=== PATIENT | female | born 1960 | race Two or more races ===

== ENCOUNTER 2019-08-17 06:05 | Day surgery (SDC) | payer OTHER ==
[~2019-08-17 06:05] MED LIST: COZAAR25 MG PO; LEVO-T25 MCG PO
[2019-08-17] MEDS ORDERED: IBU400 MG PO (08:55)
== END 2019-08-17 12:30 | disposition home or self-care (01) ==
LOC: CIR.AMB 06:05
DX: N84.1 Polyp of cervix uteri (principal)

== ENCOUNTER 2021-05-15 05:45 | Day surgery (SDC) | payer OTHER ==
[~2021-05-15 05:45] MED LIST changes: +GABAPENTIN300 M2 PO; +IBU400 MG PO; +METFORMIN HCL500 M3 PO
[2021-05-15] MEDS ORDERED: IBU400 MG PO (08:29)
== END 2021-05-15 12:10 | disposition home or self-care (01) ==
LOC: CIR.AMB 05:45
PROVIDERS: ATTEND Obstetrics & Gynecology Gynecology
DX: N84.0 Polyp of corpus uteri (principal); N72 Inflammatory disease of cervix uteri; Z20.822 Contact with and (suspected) exposure to COVID-19